=== PATIENT | male | born 1980 | race Two or more races ===

== ENCOUNTER → 2017-01-24 | Outpatient (CLI) | payer OTHER ==
--- NOTE | 2017-01-24 12:48 | REP ---
SACRUM AND COCCYX, TWO VIEWS: Pain. FINDINGS: No acute fracture or destructive osseous lesion. Signed by Merlin العلي DO 01/24/2017 01:38 P
--- NOTE | 2017-01-24 12:50 | REP ---
LUMBOSACRAL SPINE SERIES: REASON: Pain. PRIORS: None. There is mild posterior disc space narrowing at every level. Vertebral body height and alignment is within normal limits. There is no spondylolysis or spondylolisthesis. The pedicles are intact bilaterally. There is partial sacralization of L5 on the left. IMPRESSION: Mild disc space narrowing as described above. Signed by Merlin العلي DO 01/24/2017 01:38 P
== END ==
LOC: M LRY 11:33
PROVIDERS: ATTEND Physician Assistant Medical
DX: S33.8XXA Sprain of other parts of lumbar spine and pelvis, initial encounter (principal); X58.XXXA Exposure to other specified factors, initial encounter; Y92.89 Other specified places as the place of occurrence of the external cause; Y93.89 Activity, other specified; Y99.8 Other external cause status